=== PATIENT | male | born 1975 | race Caucasian/White ===

== ENCOUNTER 2016-09-04 09:08 | Inpatient (IN) | payer MEDICARE ==
[2016-09-04] MEDS: Sodium Chloride 0.9% 1000 ML 1,000 ML IV SCH ×2 (09:53→18:00)
[2016-09-04] MEDS: Zofran 4 MG/2 ML VIAL IV PRN (09:58)
[2016-09-04] MEDS: SUBLIMAZE 100 MCG/2 ML IV PRN ×2 (10:01→15:27)
[2016-09-04] MEDS: NICODERM CQ 14 MG TOP SCH (10:04)
[2016-09-04 10:17] LABS: BASOPHIL % 0.3 % (0.0-0.4); Eosinophil % 1.9 % (0.00-5.0); Granulocytes % 66.4 % (36.0-66.0); Lymphocytes % 24.5 % (24.0-44.0); Mean Cell Volume 91.2 fl (78-100); Mean Corpuscular Hemoglobin 30.3 pg (26-32); Mean Platelet Volume 10.3 fl (6-9.5); Monocytes % 6.9 % (0.0-12.0); Platelet Count 272 K/mm3 (150-450); Red Blood Count 4.66 M/mm3 (4.1-5.6); Red Cell Distribution Width 13.8 % (11.5-14.0); White Blood Count 10.3 K/mm3 (4.0-10.5)
[2016-09-04 10:24] LABS: INR 2.45 (0.8-3.0); PROTIME 26.7 SECONDS (8.83-12.87)
[2016-09-04 10:34] LABS: ALBUMIN 3.6 g/dL (3.4-5.0); ALKALINE PHOSPHATASE 103 U/L (46-116); ANION GAP 14.4 MEQ/L (5-15); BILIRUBIN,TOTAL 0.3 mg/dL (0.2-1.0); BLOOD UREA NITROGEN 9 mg/dL (9-20); CHLORIDE 104 mEq/L (98-107); Glucose 95 MG/DL (70-110); Potassium 3.7 mEq/L (3.5-5.1); SGOT/AST 24 U/L (15-37); SGPT/ALT 30 U/L (12-78); SODIUM 140 mEq/L (136-145); Total Protein 7.6 gm/dL (6.4-8.2)
[2016-09-04] MEDS: Phenergan 25 MG INJ IV PRN ×2 (11:21→15:27)
--- NOTE | 2016-09-04 12:27 | XRAY ---
Indication: Abdominal pain, nausea, and vomiting. History of Crohn's disease. Multiple contiguous axial images obtained through the abdomen and pelvis prior to, following, and delayed 80 cc Isovue 370 contrast. Enteric contrast also given. Comparison: June 12, 2015 Lung bases demonstrates again minimal bibasilar dependent atelectasis and stable benign 7 mm noncalcified nodule in the right posterior gutter. Heart is not enlarged. Noncontrasted images again negative for pathologic visceral calcifications/calculi. Contrasted stomach and bowel loops appear nonobstructed with stable intact right lower quadrant anastomosis. There are now mild fluid distended small bowel loops with fluid leveling, ileus versus enteritis. No free fluid/air. Postcontrast images demonstrates normal visceral enhancement and renal excretion. Remaining liver, gallbladder, pancreas, spleen, adrenal glands, kidneys, ureters, bladder, and aorta appear normal in CT appearance and attenuation. No pathologic retroperitoneal lymphadenopathy. Osseous structures intact. Stable tiny fatty umbilical hernia. Impression: 1. Mild fluid distended small bowel loops with fluid leveling, ileus versus enteritis. 2. Stable right lower quadrant postsurgical changes, tiny fatty umbilical hernia, and benign right lung base noncalcified pulmonary nodule. CT DI is 20.45
[2016-09-04] MEDS: Coumadin 5 MG PO SCH (18:19)
[2016-09-04] MEDS: DILAUDID 2 MG INJECTION IV PRN (20:14)
[2016-09-04 22:02] LABS: Collection Type CLEAN CATCH
[2016-09-04 22:03] LABS: Bacteria FEW /HPF (NEGATIVE); COMPLETE URINE MICROSCOPIC? YES; Epithelial Cells RARE /HPF (FEW); Mucus MODERATE /HPF (NEGATIVE); WBC 0-2 /HPF (0-5)
[2016-09-05] MEDS: Phenergan 25 MG INJ IV PRN ×3 (00:15→20:35)
[2016-09-05] MEDS: Sodium Chloride 0.9% 1000 ML 1,000 ML IV SCH ×3 (02:01→15:53)
[2016-09-05] MEDS: DILAUDID 2 MG INJECTION IV PRN ×6 (02:07→23:10)
[2016-09-05 05:59] LABS: BASOPHIL % 0.3 % (0.0-0.4); Eosinophil % 3.2 % (0.00-5.0); Granulocytes % 44.1 % (36.0-66.0); Lymphocytes % 44.4 % (24.0-44.0); Mean Cell Volume 92.5 fl (78-100); Mean Corpuscular Hemoglobin 30.3 pg (26-32); Mean Platelet Volume 10.3 fl (6-9.5); Platelet Count 234 K/mm3 (150-450); Red Blood Count 4.16 M/mm3 (4.1-5.6); Red Cell Distribution Width 13.6 % (11.5-14.0); White Blood Count 6.8 K/mm3 (4.0-10.5)
[2016-09-05 06:05] LABS: ALBUMIN 3.1 g/dL (3.4-5.0); ALKALINE PHOSPHATASE 86 U/L (46-116); ANION GAP 14.2 MEQ/L (5-15); BILIRUBIN,TOTAL 0.4 mg/dL (0.2-1.0); BLOOD UREA NITROGEN 12 mg/dL (9-20); CHLORIDE 108 mEq/L (98-107); Carbon Dioxide 23.7 mEq/L (21-32); Glucose 75 MG/DL (70-110); Potassium 3.9 mEq/L (3.5-5.1); SGOT/AST 13 U/L (15-37); SGPT/ALT 16 U/L (12-78); SODIUM 142 mEq/L (136-145); Total Protein 6.4 gm/dL (6.4-8.2)
[2016-09-05] MEDS ORDERED: FLUZONE QUAD 2016-2017 SYRINGE 36MO-64YO IM ONE (10:00)
[2016-09-05] MEDS: NICODERM CQ 14 MG TOP SCH (10:23)
--- NOTE | 2016-09-05 12:15 | PCM.HP ---
History of Present Illness - Chief Complaint Chief Complaint: Chrohns exaburation, Abd. Pain, Nausea, Vomiting, Date: 09/05/16 History of Present Illness: is a 41 year old male. follows with Dr. Garcia and Dr. Quevedo. He was seen yesterday in Dr. Quevedo office after having flair of his chronic abdominal pain for 3 weeks and not tolerating po nausea vomiting and no bowel movements. He was having severe pain worse in the left lower quadrant area. He had labs and CT done on arrival remarkable for ileus with no evidence of obstruction Has hx of crohn's no recent diarrhea or bloody bowel movements. Medications & Allergies Home Medications: Home Medication List Adalimumab [Humira] 40 mg IM UD 03/07/12 [History Confirmed 09/04/16] Warfarin Sodium 5 mg [Coumadin 5 MG] 5 mg PO HS 03/28/13 [History Confirmed 09/04/16] Promethazine HCl 25 mg [Phenergan 25 mg] 25 mg PO Q6H PRN PRN 04/27/13 [ History Confirmed 09/04/16] Ondansetron [Zofran Odt] 4 mg PO Q4-6HPRN PRN 09/04/16 [History Confirmed ] Allergies/Adverse Reactions: Allergies Allergy/AdvReac Type Severity Reaction Status Date / Time azathioprine [From Imuran] Allergy Mild weak Verified 08/05/16 12:14 vomiting azathioprine sodium Allergy Mild weak Verified 08/05/16 12:14 [From Imuran] vomiting clonazepam [From Klonopin] Allergy Mild Hives Verified 08/05/16 12:14 infliximab [From Remicade] Allergy Mild Hives Verified 08/05/16 12:14 methylprednisolone sodium Allergy Mild Hives Verified 08/05/16 12:14 succinate [From Solu-Medrol] morphine Allergy Mild Hives Verified 08/05/16 12:14 Penicillins Allergy Mild breathing Verified 08/05/16 12:14 metronidazole [From Flagyl] AdvReac Mild Vomiting Verified 08/05/16 12:14 Metronidazole HCl AdvReac Mild Vomiting Verified 08/05/16 12:14 [From Flagyl] isosorbide mononitrate AdvReac Vomiting Verified 08/05/16 12:14 [From Imdur] - Past Medical History Past Medical History: Yes Neurological History: Seizures ENT History: No Pertinent History Cardiac History: Deep Vein Thrombosis Respiratory History: No Pertinent History Endocrine Medical History: No Pertinent History Musculoskelatal History: No Pertinent History GI Medical History: Crohns Disease, Diverticulitis History: No Pertinent History Pyscho-Social History: Anxiety, Depression Male Reproductive Disorders: No Pertinent History Comment: clotting disorder factor 5 - Past Surgical History Past Surgical History: Yes Neuro Surgical History: No Pertinent History Cardiac History: No Pertinent History Respiratory Surgery: No Pertinent History GI Surgical History: Appendectomy, Colon Resection, Other Genitourinary Surgical Hx: No Pertinent History Musculskeletal Surgical Hx: No Pertinent History Male Surgical History: No Pertinent History Other Surgical History: port a cath placement 02/16/12, Illectomy, bowel resection, 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, and left forearm - Social History Smoking Status: Current every day smoker How long have you smoked: 39 Exposure to second hand smoke: Yes Alcohol: None Drug Use: marijuana Significant Family History: no pertinent family hx - Physical Exam Vital Signs: Vital Signs - 24 hr Temp Pulse Resp BP Pulse Ox 09/05/16 08:22 98.9 F 68 20 102/56 91 L 09/05/16 04:00 98.1 F 70 17 99/58 94 L 09/05/16 00:00 97.9 F 65 17 110/62 94 L 09/04/16 20:00 97.6 F 67 17 113/73 93 L 09/04/16 16:42 97.5 F 70 20 104/66 95 09/04/16 15:27 99.2 F General Appearance: no apparent distress Neurologic Exam: alert, oriented x 3, cooperative Eye Exam: No scleral icterus Ears, Nose, Throat Exam: dry mucous membranes Neck Exam: normal inspection, non-tender, supple Respiratory Exam: normal breath sounds, lungs clear, No respiratory distress Cardiovascular Exam: regular rate/rhythm, normal heart sounds, normal peripheral pulses, No murmur, No edema Gastrointestinal/Abdomen Exam: soft, normal bowel sounds, tenderness, other ( llq tenderenss), No distention, No mass, No guarding, No ecchymosis, No rebound Back Exam: normal inspection, No CVA tenderness Extremity Exam: normal inspection, normal range of motion Results - Labs Lab/Micro Results: Lab Results-Last 24 Hours 09/04/16 09/05/16 09/05/16 Range/Units 21:06 05:15 05:15 WBC 6.8 (4.0-10.5) K/mm3 RBC 4.16 (4.1-5.6) M/mm3 Hgb 12.6 (12.5-18.0) gm/dl Hct 38.5 L (42-50) % MCV 92.5 (78-100) fl MCH 30.3 (26-32) pg MCHC 32.7 (32-36) g/dl RDW 13.6 (11.5-14.0) % Plt Count 234 (150-450) K/mm3 MPV 10.3 H (6-9.5) fl Gran % 44.1 (36.0-66.0) % Lymphocytes % 44.4 H (24.0-44.0) % Monocytes % 8.0 (0.0-12.0) % Eosinophils % 3.2 (0.00-5.0) % Basophils % 0.3 (0.0-0.4) % Basophils # 0.02 (0-0.4) Sodium 142 (136-145) mEq/L Potassium 3.9 (3.5-5.1) mEq/L Chloride 108 H (98-107) mEq/L Carbon Dioxide 23.7 (21-32) mEq/L Anion Gap 14.2 (5-15) MEQ/L BUN 12 (9-20) mg/dL Creatinine 1.10 (0.55-1.30) mg/dl Estimated GFR > 60 ML/MIN Glucose 75 (70-110) MG/DL Calcium 7.8 L (8.5-10.1) mg/dL Total Bilirubin 0.4 (0.2-1.0) mg/dL AST 13 L (15-37) U/L ALT 16 (12-78) U/L Alkaline Phosphatase 86 (46-116) U/L Serum Total Protein 6.4 (6.4-8.2) gm/dL Albumin 3.1 L (3.4-5.0) g/dL Ur Collection Type CLEAN CATCH Urine Color YELLOW (YELLOW) Urine Appearance CLEAR (CLEAR) Urine pH 6.0 (5-6) Ur Specific Wolverine 1.020 (1.005-1.025) Urine Protein NEGATIVE (Negative) Urine Glucose (UA) NEGATIVE (NEGATIVE) mg/dL Urine Ketones NEGATIVE (NEGATIVE) Urine Nitrite NEGATIVE (NEGATIVE) Urine Bilirubin NEGATIVE (NEGATIVE) Urine Urobilinogen 0.2 (0-1) mg/dL Urine WBC (Auto) NEGATIVE (NEGATIVE) Urine RBC (Auto) TRACE-INTACT (0-5) Pedro/ul Urine Microscopic RBC 2-5 (0-2) /HPF Urine Microscopic WBC 0-2 (0-5) /HPF Ur Epithelial Cells RARE (FEW) /HPF Urine Bacteria FEW (NEGATIVE) /HPF Urine Mucus MODERATE (NEGATIVE) /HPF Specimen Received 09/04/16 2100 - Radiology Impressions Radiology Exams & Impressions: Radiology Procedures Category Date Time Status ABDOMEN AND PELVIS W&WO CONTRA [CT] Routine Exams 09/04/16 09:42 Completed Assessment/Plan (1) Ileus, unspecified Current Visit: Yes Status: Acute Assessment & Plan: pain improving no vomiting advance to clear liquid monitor for improvement check esr on next labs he is improving no evidence of obstruciton per patient has EGD scheduled outpatient for Wednesday already follows with GI. With his improvement went ahead and canceled the Surgery consult for now. Code(s): K56.7 - ILEUS, UNSPECIFIED (2) Hx of Crohn's disease Current Visit: Yes Status: Chronic Assessment & Plan: stable on humira Code(s): Z87.19 - PERSONAL HISTORY OF OTHER DISEASES OF THE DIGESTIVE SYSTEM (3) Hx of factor V Leiden mutation Current Visit: Yes Status: Chronic Assessment & Plan: therapeutic inr Code(s): Z86.2 - PRSNL HISTORY OF DIS OF THE BLD/BLD-FORM ORG/IMMUN MECHNSM (4) Abdominal pain Current Visit: Yes Status: Acute Code(s): R10.9 - UNSPECIFIED ABDOMINAL PAIN (5) Vomiting Current Visit: Yes Status: Acute Code(s): R11.10 - VOMITING, UNSPECIFIED
[2016-09-05] MEDS: Coumadin 5 MG PO SCH (17:01)
[2016-09-06] MEDS: Sodium Chloride 0.9% 1000 ML 1,000 ML IV SCH (02:20)
[2016-09-06] MEDS: DILAUDID 2 MG INJECTION IV PRN ×6 (02:20→23:10)
[2016-09-06] MEDS: Phenergan 25 MG INJ IV PRN ×3 (02:21→19:27)
[2016-09-06 05:57] LABS: ALBUMIN 2.9 g/dL (3.4-5.0); ALKALINE PHOSPHATASE 94 U/L (46-116); ANION GAP 12.6 MEQ/L (5-15); BILIRUBIN,TOTAL 0.4 mg/dL (0.2-1.0); BLOOD UREA NITROGEN 7 mg/dL (9-20); CHLORIDE 109 mEq/L (98-107); Carbon Dioxide 24.3 mEq/L (21-32); Glucose 89 MG/DL (70-110); LIPASE 88 U/L (73-393); SGOT/AST 22 U/L (15-37); SGPT/ALT 27 U/L (12-78); SODIUM 142 mEq/L (136-145); Total Protein 6.2 gm/dL (6.4-8.2)
[2016-09-06] MEDS: Zofran 4 MG/2 ML VIAL IV PRN (09:05)
[2016-09-06] MEDS ORDERED: CEPACOL SORE THROAT LOZENGE PO PRN (09:56)
--- NOTE | 2016-09-06 10:00 | PCM.NOTE ---
Date and Time: 09/06/16956 Subjective Assessment: He drank 2 cups of broth and a cup of grape juice yesterday but then developed worsening pain and nausea. No actual vomiting. he feels very hungry right now and really wants to try some toast. he is still having pain in the mid abdomen that radiates all over. He is passing flatulence no stools. Objective Exam General Appearance: no apparent distress Neurologic Exam: alert, oriented x 3 Skin Exam: warm, dry Ears, Nose, Throat Exam: moist mucous membranes Neck Exam: normal inspection, non-tender, supple Respiratory Exam: normal breath sounds, lungs clear Cardiovascular Exam: regular rate/rhythm, normal heart sounds Gastrointestinal/Abdomen Exam: normal bowel sounds, tenderness (diffuse tenderness with voluntary guarding), No distention Extremity Exam: normal inspection, No pedal edema OBJECTIVE DATA Vital Signs: Vital Signs - 24 hr Temp Pulse Resp BP Pulse Ox 09/06/16 07:04 98.5 F 70 18 102/60 94 L 09/06/16 03:53 98.7 F 71 19 120/81 90 L 09/05/16 23:35 98.1 F 68 16 114/78 98 09/05/16 19:59 98.0 F 70 16 116/74 93 L 09/05/16 15:56 97.8 F 68 18 109/71 94 L 09/05/16 12:00 70 18 114/75 94 L Pain Assessment - Last Documented Pain Intensity 8 Pain Scale Used 0-10 Pain Scale Intake and Output: Intake & Output 09/03/16 09/04/16 09/05/16 09/06/16 11:59 11:59 11:59 11:59 Intake Total 2292 3311 Output Total 200 1450 Balance 2092 1861 Weight 90.718 kg Lab Results: Lab Results-Last 24 Hours 09/06/16 09/06/16 Range/Units 05:25 05:25 ESR 20 H (0-15) mm/hr Sodium 142 (136-145) mEq/L Potassium 4.0 (3.5-5.1) mEq/L Chloride 109 H (98-107) mEq/L Carbon Dioxide 24.3 (21-32) mEq/L Anion Gap 12.6 (5-15) MEQ/L BUN 7 L (9-20) mg/dL Creatinine 1.06 (0.55-1.30) mg/dl Estimated GFR > 60 ML/MIN Glucose 89 (70-110) MG/DL Calcium 7.7 L (8.5-10.1) mg/dL Total Bilirubin 0.4 (0.2-1.0) mg/dL AST 22 (15-37) U/L ALT 27 (12-78) U/L Alkaline Phosphatase 94 (46-116) U/L Serum Total Protein 6.2 L (6.4-8.2) gm/dL Albumin 2.9 L (3.4-5.0) g/dL Lipase 88 (73-393) U/L Radiology Exams: Radiology Procedures Category Date Time Status ABDOMEN AND PELVIS W&WO CONTRA [CT] Routine Exams 09/04/16 09:42 Completed Assessment/Plan (1) Ileus, unspecified Current Visit: Yes Status: Acute Assessment & Plan: he is still having considerable pain. ESR only mildly elevated. Normal bowel sounds on exam. No fevers or abnormal vitals. He is very hungry and has not vomited will try bland diet discussed needs to go very slow eat very small amounts at a time Code(s): K56.7 - ILEUS, UNSPECIFIED (2) Hx of Crohn's disease Current Visit: Yes Status: Chronic Code(s): Z87.19 - PERSONAL HISTORY OF OTHER DISEASES OF THE DIGESTIVE SYSTEM (3) Hx of factor V Leiden mutation Current Visit: Yes Status: Chronic Code(s): Z86.2 - PRSNL HISTORY OF DIS OF THE BLD/BLD-FORM ORG/IMMUN MECHNSM (4) Abdominal pain Current Visit: Yes Status: Acute Code(s): R10.9 - UNSPECIFIED ABDOMINAL PAIN (5) Vomiting Current Visit: Yes Status: Acute Code(s): R11.10 - VOMITING, UNSPECIFIED
[2016-09-06] MEDS: NICODERM CQ 14 MG TOP SCH (11:04)
[2016-09-06] MEDS: Dextrose 5% -0.45 NaCl 1000 ML 1,000 ML IV SCH ×2 (11:06→23:01)
[2016-09-06] MEDS: Coumadin 5 MG PO SCH (18:35)
[2016-09-07 05:25] LABS: Mean Cell Volume 91.9 fl (78-100); Mean Corpuscular Hemoglobin 30.6 pg (26-32); Mean Platelet Volume 10.1 fl (6-9.5); Platelet Count 237 K/mm3 (150-450); Red Blood Count 4.08 M/mm3 (4.1-5.6); Red Cell Distribution Width 13.5 % (11.5-14.0); White Blood Count 6.3 K/mm3 (4.0-10.5)
[2016-09-07 05:39] LABS: INR 3.83 (0.8-3.0); PROTIME 41.2 SECONDS (8.83-12.87)
[2016-09-07 05:43] LABS: ANION GAP 11.4 MEQ/L (5-15); BLOOD UREA NITROGEN 4 mg/dL (9-20); CHLORIDE 108 mEq/L (98-107); Carbon Dioxide 27.1 mEq/L (21-32); Glucose 100 MG/DL (70-110); Potassium 3.9 mEq/L (3.5-5.1); SODIUM 143 mEq/L (136-145)
--- NOTE | 2016-09-07 08:31 | PCM.NOTE ---
Date and Time: 09/07/16829 Subjective Assessment: patient is feeling a little better, tolerated some toast yesterday. not anything else available on the brat diet that he wants. Objective Exam General Appearance: no apparent distress, alert Respiratory Exam: normal breath sounds, lungs clear, No respiratory distress Cardiovascular Exam: regular rate/rhythm, normal heart sounds Gastrointestinal/Abdomen Exam: soft, No tenderness, No mass Extremity Exam: normal inspection, normal range of motion OBJECTIVE DATA Vital Signs: Vital Signs - 24 hr Temp Pulse Resp BP Pulse Ox 09/07/16 07:02 98.6 F 68 18 106/58 93 L 09/07/16 04:00 98.3 F 75 18 98/64 92 L 09/07/16 00:00 98.2 F 70 18 129/74 91 L 09/06/16 19:58 98.7 F 74 16 124/67 95 09/06/16 15:33 98.4 F 62 16 109/73 97 09/06/16 11:50 98.6 F 71 18 108/60 95 Pain Assessment - Last Documented Pain Intensity 6 Pain Scale Used 0-10 Pain Scale Intake and Output: Intake & Output 09/04/16 09/05/16 09/06/16 09/07/16 11:59 11:59 11:59 11:59 Intake Total 2292 3311 3491 Output Total 200 1450 Balance 2092 1861 3491 Weight 90.718 kg Lab Results: Lab Results-Last 24 Hours 09/07/16 09/07/16 09/07/16 Range/Units 05:05 05:05 05:05 WBC 6.3 (4.0-10.5) K/mm3 RBC 4.08 L (4.1-5.6) M/mm3 Hgb 12.5 (12.5-18.0) gm/dl Hct 37.5 L (42-50) % MCV 91.9 (78-100) fl MCH 30.6 (26-32) pg MCHC 33.3 (32-36) g/dl RDW 13.5 (11.5-14.0) % Plt Count 237 (150-450) K/mm3 MPV 10.1 H (6-9.5) fl INR 3.83 H (0.8-3.0) Sodium 143 (136-145) mEq/L Potassium 3.9 (3.5-5.1) mEq/L Chloride 108 H (98-107) mEq/L Carbon Dioxide 27.1 (21-32) mEq/L Anion Gap 11.4 (5-15) MEQ/L BUN 4 L (9-20) mg/dL Creatinine 1.16 (0.55-1.30) mg/dl Estimated GFR > 60 ML/MIN Glucose 100 (70-110) MG/DL Calcium 7.8 L (8.5-10.1) mg/dL Assessment/Plan (1) Exacerbation of Crohn's disease of small intestine Current Visit: Yes Status: Acute Qualifiers: Digestive disease complication type: without complication Qualified Code(s) : K50.00 - Crohn's disease of small intestine without complications Assessment & Plan: advance diet today, possibly home later today or tomorrow Code(s): K50.00 - CROHN'S DISEASE OF SMALL INTESTINE WITHOUT COMPLICATIONS (2) Ileus, unspecified Current Visit: Yes Status: Acute Code(s): K56.7 - ILEUS, UNSPECIFIED (3) Vomiting Current Visit: Yes Status: Acute Code(s): R11.10 - VOMITING, UNSPECIFIED
[2016-09-07] MEDS: DILAUDID 2 MG INJECTION IV PRN ×3 (08:52→15:18)
[2016-09-07] MEDS: Dextrose 5% -0.45 NaCl 1000 ML 1,000 ML IV SCH ×2 (08:53→22:41)
[2016-09-07] MEDS: NICODERM CQ 14 MG TOP SCH (08:54)
[2016-09-07] MEDS: Phenergan 25 MG INJ IV PRN (09:40)
[2016-09-07] MEDS: Zofran 4 MG/2 ML VIAL IV PRN (10:54)
[2016-09-07] MEDS: Coumadin 5 MG PO SCH (17:31)
[2016-09-07] MEDS: PERCOCET TABLET 5/325MG PO PRN (17:31)
[2016-09-08] MEDS: PERCOCET TABLET 5/325MG PO PRN (07:29)
[2016-09-08 07:32] VITALS: BP 109/68; PULSE 65; O2SAT 94
--- NOTE | 2016-09-08 07:41 | PCM.DS ---
Discharge Summary Date of Admission: 09/04/16 09:21 Admitting Physician: RAMU MARRERO Primary Care Provider: RAMU MARRERO Allergies Allergies azathioprine [From Imuran] Allergy (Mild, Verified 08/05/16 12:14) weak vomiting azathioprine sodium [From Imuran] Allergy (Mild, Verified 08/05/16 12:14) weak vomiting clonazepam [From Klonopin] Allergy (Mild, Verified 08/05/16 12:14) Hives infliximab [From Remicade] Allergy (Mild, Verified 08/05/16 12:14) Hives methylprednisolone sodium succinate [From Solu-Medrol] Allergy (Mild, Verified 08/05/16 12:14) Hives morphine Allergy (Mild, Verified 08/05/16 12:14) Hives Penicillins Allergy (Mild, Verified 08/05/16 12:14) breathing metronidazole [From Flagyl] Adverse Reaction (Mild, Verified 08/05/16 12:14) Vomiting Metronidazole HCl [From Flagyl] Adverse Reaction (Mild, Verified 08/05/16 12:14) Vomiting isosorbide mononitrate [From Imdur] Adverse Reaction (Verified 08/05/16 12:14) Vomiting Hospital Summary - Hospital Course Hospital Course: patient tolerating po intake on date of discharge, pain controlled on po percocet, overall doing better. - Vitals & Intake/Output Vital Signs: Vital Signs Temperature 97.7 F 09/08/16 07:31 Pulse Rate 65 09/08/16 07:31 Respiratory Rate 16 09/08/16 07:31 Blood Pressure 109/68 09/08/16 07:31 O2 Sat by Pulse Oximetry 94 L 09/08/16 07:31 Intake & Output: Intake & Output 09/05/16 09/06/16 09/07/16 09/08/16 11:59 11:59 11:59 11:59 Intake Total 2292 3311 3491 3879 Output Total 200 1450 Balance 2092 1861 3491 3879 Weight 90.718 kg - Lab Result Diagrams: 09/07/16 05:05 09/07/16 05:05 - Procedures and Test Procedures and Tests throughout Hospitalization: Therapy Orders & Screens 09/04/16 10:20 Smoking Cessation Education ONCE Comment: Diagnosis: Chrohns exaburation, Abd. Pain, Nausea, Vomiting, Smoking Status: Current every day smoker How long have you smoked: 39 Have you smoked in the past 12 months: Yes Approximately how many cigarettes per day: 1/2 ppd Do you dip or chew tobacco: No Discharge Exam General Appearance: no apparent distress, alert Respiratory Exam: normal breath sounds, lungs clear, No respiratory distress Cardiovascular Exam: regular rate/rhythm, normal heart sounds Gastrointestinal/Abdomen Exam: soft, normal bowel sounds, tenderness, No mass, No guarding Extremity Exam: normal inspection, normal range of motion Final Diagnosis/Problem List - Final Discharge Diagnosis/Problem (1) Exacerbation of Crohn's disease of small intestine Current Visit: Yes Status: Acute Assessment & Plan: home on po prednisone and cipro (2) Ileus, unspecified Current Visit: Yes Status: Acute (3) Vomiting Current Visit: Yes Status: Acute - Discharge Disposition: Home, Self-Care Condition: Stable Prescriptions: Ciprofloxacin HCl 500 mg [Cipro 500 MG] 500 mg PO BIDAC #20 tablet Prednisone 20 mg [Deltasone 20 mg] 20 mg PO DAILY #7 tablet Oxycodone/APAP 5 mg/325 mg [Percocet Tablet 5/325Mg] 1 tab PO Q6H PRN PRN # 30 tablet PRN Reason: Pain Medications: Home Medications Adalimumab [Humira] 40 mg IM UD 03/07/12 [Confirmed 09/04/16] Warfarin Sodium 5 mg [Coumadin 5 MG] 5 mg PO HS 03/28/13 [Confirmed ] Promethazine HCl 25 mg [Phenergan 25 mg] 25 mg PO Q6H PRN PRN 04/27/13 [ Confirmed 09/04/16] Ondansetron [Zofran Odt] 4 mg PO Q4-6HPRN PRN 09/04/16 [Confirmed 09/04/16] Active Inpatient Medications Dextrose/Sodium Chloride (Dextrose 5% -0.45 Nacl 1000 Ml) 1,000 mls @ 85 mls/ hr IV .[id number] [facility] Stop: 10/06/16 09:59 Last Admin: 09/07/16 22:41 Dose: 85 mls/hr Nicotine (Nicoderm Cq 14 Mg) 14 mg TOP DAILY [facility] Stop: 10/04/16 09:59 Last Admin: 09/07/16 08:54 Dose: 14 mg Ondansetron HCl (Zofran 4 Mg/2 Ml Vial) 4 mg IV Q4H PRN PRN PRN Reason: NAUSEA/VOMITING Stop: 10/04/16 09:39 Last Admin: 09/07/16 10:54 Dose: 4 mg Oxycodone/Acetaminophen (Percocet Tablet 5/325mg) 1 tab PO Q6H PRN PRN PRN Reason: PAIN Stop: 09/12/16 16:32 Last Admin: 09/08/16 07:29 Dose: 1 tab Promethazine HCl (Phenergan 25 Mg Inj) 12.5 mg IV Q4H PRN PRN PRN Reason: NAUSEA/VOMITING Stop: 10/04/16 11:08 Last Admin: 09/07/16 09:40 Dose: 12.5 mg Throat Lozenges (Cepacol Sore Throat Lozenge) 15 mg PO Q4H PRN PRN PRN Reason: PAIN Stop: 10/06/16 09:55 Last Admin: 09/06/16 12:42 Dose: 15 mg Warfarin Sodium (Coumadin 5 Mg) 5 mg PO COU [facility] Stop: 10/04/16 17:59 Last Admin: 09/07/16 17:31 Dose: 5 mg Follow up with: RAMU MARRERO MD [Primary Care Provider] - 1 Week Forms: Patient Portal Information
[2016-09-08] MEDS: NICODERM CQ 14 MG TOP SCH (09:09)
== END 2016-09-08 09:25 | disposition home or self-care (01) | DRG 386 ==
LOC: MED SURG 09:21
PROVIDERS: ADMIT Family Medicine; ATTEND Family Medicine
DX: K50.00 Crohn's disease of small intestine without complications (principal); K56.7 Ileus, unspecified; D68.8 Other specified coagulation defects; G40.909 Epilepsy, unspecified, not intractable, without status epilepticus; F41.8 Other specified anxiety disorders; Z79.01 Long term (current) use of anticoagulants; Z79.899 Other long term (current) drug therapy; Z86.718 Personal history of other venous thrombosis and embolism; Z86.2 Personal history of diseases of the blood and blood-forming organs and certain disorders involving the immune mechanism
CPT/HCPCS: 36415; 74178; 80048; 80053; 81000; 83690; 85025; 85027; 85610; 85652; J1170; J1642; J2405; J2550; J3010

== ENCOUNTER 2021-11-17 11:23 | Emergency (ER) | payer OTHER ==
[2013-04-29 08:16] VITALS: BP 107/67
== END 2021-11-17 12:20 | disposition home or self-care (01) ==
LOC: EDBD 11:23 → MERGE 11:23 → ED 11:23
DX: Z53.9 Procedure and treatment not carried out, unspecified reason (principal)

== ENCOUNTER 2021-11-17 11:26 | Emergency (ER) | payer MEDICARE, OTHER ==
[2021-11-17] MEDS ORDERED: Sodium Chloride 0.9% 1000 ML 1,000 ML IV STA (11:31)
[2021-11-17] MEDS ORDERED: Sodium Chloride 0.9% 1000 ML 1,000 ML ONE (11:31)
[2021-11-17] MEDS ORDERED: Hydromorphone 1 mg/ml Injection IV ONE (11:36)
[2021-11-17] MEDS ORDERED: Hydromorphone 1 mg/ml Injection ONE (11:40)
[2021-11-17 11:53] VITALS: O2SAT 87
--- NOTE | 2021-11-17 11:59 | ERPHSYRPT ---
- History of Present Illness Source: family, EMS Exam Limitations: clinical condition Patient Subjective Stated Complaint: PT HERE FOR SOB AND WEAKNESS, HE IS ON HOSPICE FOR END STAGE COLON CA, HE GOT UP TO BATHROOM AND GOT WEAK AND FAMILY GOT SCARED AND CALLED 911, Triage Nursing Assessment: PT LETHERGIC,SAYING IM GOING TO , AT BEDSIDE, PT RESTLESS, LEGS MOTTLED, NRB PLACED, NO EDEMA NOTED. Physician History: 46 yo wm w metastatic colon ca who is a Hospice pt presents w dyspnea per EMS. Pt appears to be actively dying upon arrival. Spoke w , and she stated that he does not want anything done and agrees w DNR status. R EJ placed before DNR clarified. Comfort measures after clarification. Timing/Duration: other (Chronic ) Activities at Onset: rest Severity of Dyspnea-Max: severe Severity of Dyspnea-Current: severe Possible Cause: chronic episodes Modifying Factors: Improves With: oxygen Associated Symptoms: constant, painful breathing Allergies/Adverse Reactions: ciprofloxacin [From Cipro] Allergy (Severe, Verified 02/24/17 14:03) Hives azathioprine [From Imuran] Allergy (Mild, Verified 01/07/17 10:25) weak vomiting azathioprine sodium [From Imuran] Allergy (Mild, Verified 01/07/17 10:25) weak vomiting clonazepam [From Klonopin] Allergy (Mild, Verified 01/07/17 10:25) Hives infliximab [From Remicade] Allergy (Mild, Verified 01/07/17 10:25) Hives methylprednisolone sodium succinate [From Solu-Medrol] Allergy (Mild, Verified 01/07/17 10:25) Hives morphine Allergy (Mild, Verified 01/07/17 10:25) Hives Penicillins Allergy (Mild, Verified 01/07/17 10:25) breathing metronidazole [From Flagyl] Adverse Reaction (Mild, Verified 01/07/17 10:25) Vomiting Metronidazole HCl [From Flagyl] Adverse Reaction (Mild, Verified 01/07/17 10:25) Vomiting isosorbide mononitrate [From Imdur] Adverse Reaction (Verified 01/07/17 10:25) Vomiting Hx Tetanus, Diphtheria Vaccination/Date Given: No Hx Influenza Vaccination/Date Given: Yes (2014) Hx Pneumococcal Vaccination/Date Given: Yes (2014) Immunizations Up to Date: Yes Travel Risk - International Travel Have you traveled outside of the country in past 3 weeks: No - Coronavirus Screening Are you exhibiting any of the following symptoms?: No Close contact with a COVID-19 positive Pt in past 14-21 Days: No - Vaccine Status Have you recieved a Covid-19 vaccination: No - Review of Systems All Other Systems: Unable due to condition - Past Medical History Pertinent Past Medical History: Yes Neurological History: Seizures ENT History: No Pertinent History Cardiac History: Deep Vein Thrombosis Respiratory History: No Pertinent History Endocrine Medical History: No Pertinent History Musculoskeletal History: No Pertinent History GI Medical History: Crohns Disease, Diverticulitis History: No Pertinent History Psycho-Social History: Anxiety, Depression Male Reproductive Disorders: No Pertinent History Other Medical History: clotting disorder factor 5, tick bite 11/2016 - Past Surgical History Past Surgical History: Yes Neuro Surgical History: No Pertinent History Cardiac: No Pertinent History Respiratory: No Pertinent History Gastrointestinal: Appendectomy, Bowel Surgery, Exploratory Laparoscopy Genitourinary: No Pertinent History Musculoskeletal: No Pertinent History Male Surgical History: No Pertinent History Other Surgical History: polyps removed from colonoscopy,port placement, tumors removed from back arms and shoulders - Social History Smoking Status: Current every day smoker How long have you smoked: 39 Exposure to second hand smoke: Yes Alcohol Use: Socially Drug Use: none Patient Lives Alone: No Significant Family History: no pertinent family hx - Nursing Vital Signs Nursing Vital Signs: Initial Vital Signs Temperature 97.0 F 11/17/21 11:39 Pulse Rate 87 11/17/21 11:39 Respiratory Rate 22 11/17/21 11:39 O2 Sat by Pulse Oximetry 87 L 11/17/21 11:39 Pain Scale Pain Intensity 3 Hypoxic - Physical Exam General Appearance: severe distress (Pt actively dying but DNR/Hospice care only) Eye Exam: PERRL/EOMI, eyes nml inspection Ears, Nose, Throat Exam: hearing grossly normal Neck Exam: normal inspection Respiratory Exam: respiratory distress, prolonged expirations, rhonchi, wheezing Cardiovascular/Chest Exam: regular rate/rhythm, No murmur Abdominal/Gastrointestinal Exam: distention Extremity Exam: non-tender, normal range of motion, normal capillary refill Neurologic Exam: other (Pt minimally alert) Skin Exam: pale SpO2 Interpretation: hypoxic SpO2: 87 O2 Delivery: Non-rebreather - Course Nursing assessment & vital signs reviewed: Yes Ordered Tests: Medication Summary Discontinued Medications Generic Name Dose Route Start Last Admin Trade Name Steph PRN Reason Stop Dose Admin Hydromorphone HCl 0.5 mg 11/17/21 11:36 11/17/21 11:41 Hydromorphone 1 Mg/1ml Inj 1 Mg/Ml Syringe IV 11/17/21 11:37 0.5 mg STAT ONE Administration Hydromorphone HCl Confirm 11/17/21 11:40 Hydromorphone 1 Mg/1ml Inj 1 Mg/Ml Syringe Administered 11/17/21 11:41 Dose 1 mg .ROUTE .STK-MED ONE Sodium Chloride 1,000 mls @ 999 mls/hr 11/17/21 11:31 11/17/21 11:32 Sodium Chloride 0.9% 1000 Ml IV 11/17/21 12:31 999 mls/hr .Q1H1M STA Administration Sodium Chloride Confirm 11/17/21 11:31 Sodium Chloride 0.9% 1000 Ml Administered 11/17/21 11:32 Dose 1,000 mls @ ud .ROUTE .STK-MED ONE - Progress Progress: unchanged Progress Note: 11/17/21 12:18 Pt's Hospice nurse arrived and talked to pt's /family. It was decided that pt would might be more comfortable at home where family could be with him during the dying process. 200ml NS bolus/0.5mg IV Dilaudid. Counseled pt/family regarding: diagnosis - Departure Departure Disposition: Home Clinical Impression: Colon cancer, Dying care Condition: Poor Critical Care Time: Yes Critical Care Time(excluding separately billable procedures): Critical 30-74 mins Referrals: JUAN MANUEL LEROY MD [Primary Care Provider] - Follow up/PCP as directed Instructions: How to Tell When Is Near Additional Instructions: Home care per Hospice
[2021-11-17 12:08] VITALS: BP 71/57; PULSE 62
== END 2021-11-17 12:12 | disposition home or self-care (01) ==
LOC: ED 11:26
DX: C18.9 Malignant neoplasm of colon, unspecified (principal); C79.9 Secondary malignant neoplasm of unspecified site; Z51.5 Encounter for palliative care; Z72.0 Tobacco use
CPT/HCPCS: 96374; 99284; J1170